=== PATIENT | female | born 1965 | race Caucasian/White ===

== ENCOUNTER 2018-11-27 04:00 | Day surgery (SDC) | payer OTHER ==
[~2018-11-27] VITALS: Ht 177.8 cm; Wt 98.0 kg
[~2018-11-27 04:00] MED LIST: IRON325 PO; PROTONIX40 M1 PO
[2018-11-27 08:00] VITALS: BP 128/64
[2018-11-27 08:02] LABS: HEMATOCRIT 30.1 % (37.0-47.0); HEMOGLOBIN 9.6 gm/dL (12.0-15.0); MCH 19.9 pg (26.0-34.0); MCV 62.3 fL (80.0-100.0); RBC 4.84 mil/uL (4.20-5.00); RDW 21.7 % (10.5-14.5); WBC 10.2 thou/uL (4.0-11.0)
[2018-11-27] MEDS ORDERED: ONDANSETRON HCL4 M2 PO (09:38)
[2018-11-27] MEDS ORDERED: HYDROCODONE-AP1 EAC6 PO (09:38)
== END 2018-11-27 11:15 | disposition home or self-care (01) ==
LOC: OR 04:00 → TBA 04:00 → OR 11:15
PROVIDERS: Surgery
DX: R59.1 Generalized enlarged lymph nodes (principal); Z68.31 Body mass index [BMI] 31.0-31.9, adult; D64.9 Anemia, unspecified; K21.9 Gastro-esophageal reflux disease without esophagitis; Z98.890 Other specified postprocedural states
CPT/HCPCS: 50010; 50101; 50249; 50386; 50555; 50558; 50962; 51437; 51975; 52182; 52265; 53307; 53310; 54022; 54118; 56462; 56525; 56526; 57092; 62110; 62900; 70005